=== PATIENT | male | born 1955 | race Caucasian/White ===

== ENCOUNTER → 2016-03-31 | Outpatient (CLI) | payer OTHER ==
[~2016-03-31] MED LIST: ASPI81TA82 PO; ATOR40TA PO; CARV12.52 PO; GLYB1TAB50 PO; LISI-363 PO; NAPR220T95 PO; TAB-TAB PO; TRAM50TA PO
[2016-03-31 09:18] LABS: PLATELET COUNT 241 TH/MM3 (150-450); RED BLOOD COUNT 4.66 MIL/MM3 (4.50-5.90); RED CELL DISTRIBUTION WIDTH 13.8 % (11.6-17.2); REVIEW FLAG FINAL; WHITE BLOOD COUNT 6.4 TH/MM3 (4.0-11.0)
[2016-03-31 09:33] LABS: ALKALINE PHOSPHATASE 128 U/L (45-117); ALT (GPT) 71 U/L (12-78); ANION GAP 11 MEQ/L (5-15); AST (GOT) 48 U/L (15-37); BICARBONATE 23.8 MEQ/L (21.0-32.0); BLOOD UREA NITROGEN 29 MG/DL (7-18); CHLORIDE 102 MEQ/L (98-107); GLOMERULAR FILTRATION RATE 48 ML/MIN (>89); GLUCOSE,FASTING 244 MG/DL (74-99); HDL CHOLESTEROL 37.3 MG/DL (40.0-60.0); LDL CHOLESTEROL 37 MG/DL (0-99); POTASSIUM 4.1 MEQ/L (3.5-5.1); SODIUM (NA) 137 MEQ/L (136-145); TOTAL BILIRUBIN ADULT 0.4 MG/DL (0.2-1.0)
[2016-03-31 17:33] LABS: HEMOGLOBIN A1b 1.2 %; HEMOGLOBIN F 1.6 %
== END ==
LOC: PLAB 06:51
PROVIDERS: ATTEND Family Medicine
DX: E78.5 Hyperlipidemia, unspecified (principal); E11.65 Type 2 diabetes mellitus with hyperglycemia; I10 Essential (primary) hypertension; C65.1 Malignant neoplasm of right renal pelvis
CPT/HCPCS: 80053; 80061; 83036; 84153; 85027

== ENCOUNTER → 2016-08-10 | Outpatient (CLI) | payer OTHER ==
[~2016-08-10] MED LIST changes: +ASPI81TA11 PO; +CARV25TA PO; +CLAR10CA3 PO; +GLYB2.5T3 PO; +HYDR25TA5 PO; +LIPI40TA PO; +LISI-515 PO; +MULT1CHW33 PO
[2016-08-10 09:02] LABS: HEMATOCRIT 38.7 % (39.0-51.0); MEAN CELL VOLUME 87.6 FL (80.0-100.0); MEAN CORPUSCULAR HEMOGLOBIN 30.4 PG (27.0-34.0); MEAN CORPUSCULAR HGB CONC 34.8 % (32.0-36.0); PLATELET COUNT 229 TH/MM3 (150-450); RED BLOOD COUNT 4.42 MIL/MM3 (4.50-5.90); RED CELL DISTRIBUTION WIDTH 13.3 % (11.6-17.2); REVIEW FLAG FINAL; WHITE BLOOD COUNT 6.1 TH/MM3 (4.0-11.0)
[2016-08-10 09:25] LABS: ANION GAP 9 MEQ/L (5-15); BICARBONATE 23.2 MEQ/L (21.0-32.0); BLOOD UREA NITROGEN 18 MG/DL (7-18); CHLORIDE 107 MEQ/L (98-107); GLUCOSE,FASTING 228 MG/DL (74-99); POTASSIUM 4.1 MEQ/L (3.5-5.1); SODIUM (NA) 139 MEQ/L (136-145)
[2016-08-10 09:26] LABS: AST (GOT) 54 U/L (15-37); GLOMERULAR FILTRATION RATE 61 ML/MIN (>89)
[2016-08-10 09:38] LABS: ALKALINE PHOSPHATASE 104 U/L (45-117); ALT (GPT) 71 U/L (12-78); HDL CHOLESTEROL 43.3 MG/DL (40.0-60.0); LDL CHOLESTEROL 60 MG/DL (0-99); TOTAL BILIRUBIN ADULT 0.3 MG/DL (0.2-1.0)
[2016-08-10 11:42] LABS: HEMOGLOBIN A1a 0.9 %; HEMOGLOBIN A1b 2.6 %; HEMOGLOBIN Ao 77.5 %; HEMOGLOBIN LA1C 2.9 %; HEMOGLOBIN P3 5.1 %
== END ==
LOC: PLAB 06:44
PROVIDERS: ATTEND Urology
DX: E11.65 Type 2 diabetes mellitus with hyperglycemia (principal); I10 Essential (primary) hypertension; C65.1 Malignant neoplasm of right renal pelvis; E78.5 Hyperlipidemia, unspecified; R60.0 Localized edema; R94.31 Abnormal electrocardiogram [ECG] [EKG]; I11.9 Hypertensive heart disease without heart failure
CPT/HCPCS: 80053; 80061; 83036; 84153; 84443; 85027

== ENCOUNTER → 2016-12-17 | Outpatient (CLI) | payer OTHER ==
[~2016-12-17] MED LIST changes: -ASPI81TA82 PO; -ATOR40TA PO; -CARV12.52 PO; -GLYB1TAB50 PO; -LISI-363 PO; -NAPR220T95 PO; -TAB-TAB PO
[2016-12-17 09:59] LABS: HEMATOCRIT 40.4 % (39.0-51.0); MEAN CELL VOLUME 89.7 FL (80.0-100.0); MEAN CORPUSCULAR HEMOGLOBIN 29.9 PG (27.0-34.0); MEAN CORPUSCULAR HGB CONC 33.4 % (32.0-36.0); PLATELET COUNT 242 TH/MM3 (150-450); RED BLOOD COUNT 4.51 MIL/MM3 (4.50-5.90); RED CELL DISTRIBUTION WIDTH 13.6 % (11.6-17.2); REVIEW FLAG FINAL; WHITE BLOOD COUNT 6.7 TH/MM3 (4.0-11.0)
[2016-12-17 10:25] LABS: ANION GAP 9 MEQ/L (5-15); AST (GOT) 39 U/L (15-37); BICARBONATE 22.9 MEQ/L (21.0-32.0); BLOOD UREA NITROGEN 27 MG/DL (7-18); CHLORIDE 102 MEQ/L (98-107); GLOMERULAR FILTRATION RATE 52 ML/MIN (>89); GLUCOSE,FASTING 271 MG/DL (74-99); POTASSIUM 4.6 MEQ/L (3.5-5.1); SODIUM (NA) 134 MEQ/L (136-145)
[2016-12-17 10:39] LABS: ALKALINE PHOSPHATASE 104 U/L (45-117); ALT (GPT) 60 U/L (12-78); HDL CHOLESTEROL 40.1 MG/DL (40.0-60.0); LDL CHOLESTEROL 47 MG/DL (0-99); TOTAL BILIRUBIN ADULT 0.6 MG/DL (0.2-1.0)
== END ==
LOC: PLAB 07:20
PROVIDERS: ATTEND Family Medicine
DX: C65.1 Malignant neoplasm of right renal pelvis (principal); E78.5 Hyperlipidemia, unspecified; I12.9 Hypertensive chronic kidney disease with stage 1 through stage 4 chronic kidney disease, or unspecified chronic kidney disease; N18.3 Chronic kidney disease, stage 3 (moderate); E11.22 Type 2 diabetes mellitus with diabetic chronic kidney disease; E11.65 Type 2 diabetes mellitus with hyperglycemia; Z68.42 Body mass index [BMI] 45.0-49.9, adult
CPT/HCPCS: 80053; 80061; 82652; 84443; 85027

== ENCOUNTER → 2017-04-22 | Outpatient (CLI) | payer OTHER ==
[~2017-04-22] MED LIST changes: -ASPI81TA11 PO; +ASPI81TA23 PO
[2017-04-22 10:14] LABS: HEMATOCRIT 40.3 % (39.0-51.0); HEMOGLOBIN 13.6 GM/DL (13.0-17.0); MEAN CELL VOLUME 88.5 FL (80.0-100.0); MEAN CORPUSCULAR HEMOGLOBIN 29.9 PG (27.0-34.0); MEAN CORPUSCULAR HGB CONC 33.7 % (32.0-36.0); MEAN PLATELET VOLUME 8.6 FL (7.0-11.0); PLATELET COUNT 246 TH/MM3 (150-450); RED BLOOD COUNT 4.56 MIL/MM3 (4.50-5.90); WHITE BLOOD COUNT 6.6 TH/MM3 (4.0-11.0)
[2017-04-22 10:32] LABS: ALBUMIN 3.6 GM/DL (3.4-5.0); AST (GOT) 45 U/L (15-37); BICARBONATE 21.8 MEQ/L (21.0-32.0); BLOOD UREA NITROGEN 44 MG/DL (7-18); CHLORIDE 106 MEQ/L (98-107); CREATININE 1.68 MG/DL (0.60-1.30); GLOMERULAR FILTRATION RATE 41 ML/MIN (>89); GLUCOSE,FASTING 139 MG/DL (74-99); SODIUM (NA) 138 MEQ/L (136-145)
[2017-04-22 10:33] LABS: ALT (GPT) 54 U/L (12-78); CHOLESTEROL 131 MG/DL (120-200); TRIGLYCERIDES 266 MG/DL (42-150)
[2017-04-22 10:47] LABS: ALKALINE PHOSPHATASE 99 U/L (45-117); CHOLESTEROL/ HDL RATIO 3.75 RATIO; HDL CHOLESTEROL 34.9 MG/DL (40.0-60.0); LDL CHOLESTEROL 43 MG/DL (0-99); TOTAL BILIRUBIN ADULT 0.4 MG/DL (0.2-1.0)
[2017-04-22 16:31] LABS: HEMOGLOBIN A1C 9.8 % (4.3-6.0)
== END ==
LOC: PLAB 06:51
PROVIDERS: ATTEND Family Medicine
DX: E11.65 Type 2 diabetes mellitus with hyperglycemia (principal); I10 Essential (primary) hypertension; C65.1 Malignant neoplasm of right renal pelvis; E78.5 Hyperlipidemia, unspecified; N18.3 Chronic kidney disease, stage 3 (moderate)
CPT/HCPCS: 36415; 80053; 80061; 83036; 84443; 85027

== ENCOUNTER 2017-06-27 18:41 | Emergency (ER) | payer OTHER ==
[2017-06-27 18:44] VITALS: BP 190/108; PULSE 90; RESP 20; O2SAT 95
--- NOTE | 2017-06-27 18:57 | PD ---
HPI Chief Complaint: Pain: Acute or Chronic Time Seen by Provider: 18:54 Travel History International Travel<30 days: No Contact w/Intl Traveler<30days: No Traveled to known affect area: No History of Present Illness HPI Patient presents with aggravated right trapezius pain. He has had increased stressors with season and moving about. Denies any specific trauma misstep or fall. Pain initially started about 11 AM this morning. Sharp. Aggravated with movement. Relieved with rest. PFSH Past Medical History Cancer: Yes (recent renal ca) Cardiovascular Problems: Yes (HTN) High Cholesterol: Yes Diabetes: Yes Diminished Hearing: No Endocrine: No Genitourinary: No Hepatitis: No Hiatal Hernia: No Hypertension: Yes Immune Disorder: No Musculoskeletal: Yes (ARTHRITIS, NECK PROBLEMS FROM OLD INJURY) Neurologic: No Psychiatric: No Reproductive: No Respiratory: No Thyroid Disease: No Past Surgical History AICD: No Eye Surgery: Yes Joint Replacement: No Oral Surgery: Yes Pacemaker: No Tonsillectomy: Yes Other Surgery: Yes (EYE SURGERY,KNEES BILAT) Social History Alcohol Use: Yes (SOCIALLY) Tobacco Use: No Substance Use: No Allergies-Medications (Allergen,Severity, Reaction): Coded Allergies: acetaminophen (Verified Allergy, Mild, Itching, 06/27/17) hydrocodone (Verified Allergy, Mild, Itching, 06/27/17) Reported Meds & Prescriptions Reported Meds & Active Scripts Active Reported Hydrochlorothiazide 25 Mg Tab 25 Mg PO DAILY Multi Adult Gummies (Multiple Vitamins W/ Minerals) 1 Chw Chw 2 Gum PO DAILY Tramadol (Tramadol HCl) 50 Mg Tab 50 Mg PO DIRECTED PRN Claritin (Loratadine) 10 Mg Cap 10 Mg PO DAILY Aspirin EC (Aspirin) 81 Mg Tabdr 81 Mg PO DAILY Carvedilol 25 Mg Tab 25 Mg PO BID Lisinopril 20 Mg Tab 20 Mg PO BID Glyburide 2.5 Mg Tab 2.5 Mg PO HS Take with meals at the same time each day Lipitor (Atorvastatin Calcium) 40 Mg Tab 40 Mg PO HS Review of Systems General / Constitutional: No: Fever Eyes: No: Visual changes HENT: No: Headaches Cardiovascular: No: Chest Pain or Discomfort Respiratory: No: Shortness of Breath Gastrointestinal: No: Abdominal Pain Genitourinary: No: Dysuria Musculoskeletal: No: Pain Skin: No Rash Neurologic: No: Weakness Psychiatric: No: Depression Endocrine: No: Polydipsia Hematologic/Lymphatic: No: Easy Bruising Physical Exam Narrative GENERAL: Well-nourished, well-developed patient. SKIN: Focused skin assessment warm/dry. HEAD: Normocephalic. EYES: No scleral icterus. No injection or drainage. NECK: Supple, trachea midline. No JVD or lymphadenopathy. CARDIOVASCULAR: Regular rate and rhythm without murmurs, gallops, or rubs. RESPIRATORY: Breath sounds equal bilaterally. No accessory muscle use. GASTROINTESTINAL: Abdomen soft, non-tender, nondistended. MUSCULOSKELETAL: No cyanosis, or edema. BACK: Nontender without obvious deformity. No CVA tenderness. Examination cervical spine reveals no midline tenderness right-sided paraspinous pain radiating into the trapezius Data Data Last Documented VS Vital Signs Date Time Temp Pulse Resp B/P (MAP) Pulse Ox O2 Delivery O2 Flow Rate FiO2 06/27/17 18:44 90 20 190/108 (135) 95 Orders Orders Ketorolac Inj (Toradol Inj) (06/27/17 19:00) Oxycodone-Acetamin 10-325 Mg (Percocet 1 (06/27/17 19:00) Diphenhydramine (Benadryl) (06/27/17 19:00) MDM Medical Decision Making Medical Screen Exam Complete: Yes Emergency Medical Condition: Yes Differential Diagnosis Cervical degenerative disc disease, trapezius muscular skeletal pain, muscle strain, Narrative Course Assessment plan discussed with patient and son at bedside Diagnosis Primary Impression: Trapezius muscle strain Qualified Codes: S46.811A - Strain of other muscles, fascia and tendons at shoulder and upper arm level, right arm, initial encounter Patient Instructions: Narcotic given in the ED, General Instructions Additional Instructions: Nonsteroidal anti-inflammatories warm heat gentle stretching strengthening and massage Med/Other Pt SpecificInfo: Prescription(s) given Scripts Cyclobenzaprine (Flexeril) 10 Mg Tab 10 MG PO TID for Muscle Spasm, #30 TAB 0 Refills Prov: Bubba Sanabria MD 06/27/17 Oxycodone-Acetaminophen (Percocet) 10-325 mg Tab 1 TAB PO Q4H Y for PAIN, #30 TAB 0 Refills Prov: Bubba Sanabria MD 06/27/17 Disposition: 01 DISCHARGE HOME Condition: Good Bubba Sanabria MD Jun 27, 2017 18:56
[2017-06-27] MEDS ORDERED: oxyCODONE/ACETAMINOPHEN 10 MG/325 MG TAB PO ONE (19:00)
[2017-06-27] MEDS ORDERED: diphenhydrAMINE HCL 25 MG CAP PO ONE (19:00)
[2017-06-27] MEDS ORDERED: KETOROLAC TROMETHAMINE 60 MG/2 ML (IM) VIAL IM ONE (19:00)
[2017-06-27] MEDS ORDERED: PERC10TA27 PO (19:02)
[2017-06-27] MEDS ORDERED: CYCL10TA PO (19:02)
== END 2017-06-27 19:13 | disposition home or self-care (01) ==
LOC: PHED 18:41
DX: S46.811A Strain of other muscles, fascia and tendons at shoulder and upper arm level, right arm, initial encounter (principal); I10 Essential (primary) hypertension; E78.00 Pure hypercholesterolemia, unspecified; E11.9 Type 2 diabetes mellitus without complications; M19.90 Unspecified osteoarthritis, unspecified site; X58.XXXA Exposure to other specified factors, initial encounter; Z79.82 Long term (current) use of aspirin; Z79.899 Other long term (current) drug therapy; Z88.6 Allergy status to analgesic agent
CPT/HCPCS: 96372; 99283; J1885

== ENCOUNTER → 2017-08-19 | Day surgery (SDC) | payer OTHER ==
[~2017-08-19] MED LIST changes: +LIDOCAINE HCL 1% 30 ML VIAL INFIL ONE; +MEPERIDINE HCL 50 MG/ML VIAL IV ONE; +MIDAZOLAM HCL 2 MG/2 ML VIAL IV ONE; +PROPOFOL 200 MG/20 ML AMP IV ONE; +SODIUM CHLORIDE 0.9% 10 ML VIAL ONE; +TRIAMCINOLONE ACETONIDE 40 MG/ML VIAL NERV BLOCK ONE
--- NOTE | 2017-08-19 10:34 | M6 ---
cc: Jean Hu MD DATE: 08/19/2017 PROCEDURE PERFORMED: Fluoroscopically guided T1-T2 interlaminar epidural steroid injection. History and physical was completed and signed. Consent was signed. Procedure site was marked. Medications were listed and reconciled. Pain score was recorded. Allergies were noted. Time out was taken. Fluoroscopy time was recorded where applicable. Sedation was administered or directed by Dr. Hu. The patient was given oxygen. The patient was monitored by a registered nurse. Total procedure time was greater than 15 minutes. IV was started. Blood pressure cuff, pulse oximeter and EKG were applied. The patient was placed in the prone position on a Nelson table, sedated with small amounts of Propofol titrated to effect. Vital signs were monitored and remained stable throughout the procedure. Cervical area was prepped with alcohol and 10% Betadine solution and draped with sterile drapes. Fluoroscopy was used to visualize the T1-T2 interlaminar space. The skin was infiltrated with 1% Xylocaine, using a 27-gauge needle. Then, a 3-1/2 inch, 18-gauge Rosario needle was advanced using fluoroscopic guidance and the loss of resistance technique into the epidural space at T1-T2, slightly to the right of the midline. There was negative aspiration for blood or any other type of fluid and at that location of the patient was given 6 mL of normal saline and 60 mg of Kenalog. Following this, the patient was taken to the recovery room with stable vital signs, neurologically intact. MD VALERIE Kitchen/VICENTE , 10:04 AM , 10:32 AM
== END | disposition home or self-care (01) ==
LOC: PHSDC 08:05
PROVIDERS: ATTEND Pain Medicine Interventional Pain Medicine
DX: M79.621 Pain in right upper arm (principal)
CPT/HCPCS: 62321; 99152; J2175; J2250; J3301

== ENCOUNTER → 2017-08-27 | Outpatient (CLI) | payer OTHER ==
[~2017-08-27] MED LIST changes: -LIDOCAINE HCL 1% 30 ML VIAL INFIL ONE; -MEPERIDINE HCL 50 MG/ML VIAL IV ONE; -MIDAZOLAM HCL 2 MG/2 ML VIAL IV ONE; -PROPOFOL 200 MG/20 ML AMP IV ONE; -SODIUM CHLORIDE 0.9% 10 ML VIAL ONE; -TRIAMCINOLONE ACETONIDE 40 MG/ML VIAL NERV BLOCK ONE
[2017-08-27 10:28] LABS: AUTOMATED NEUTROPHIL # 7.1 TH/MM3 (1.8-7.7); BASOPHIL % 0.4 % (0.0-2.0); EOSINOPHIL # 0.2 TH/MM3 (0-0.4); EOSINOPHIL % 2.4 % (0.0-4.0); HEMATOCRIT 41.3 % (39.0-51.0); HEMOGLOBIN 13.7 GM/DL (13.0-17.0); LYMPH % 19.9 % (9.0-44.0); LYMPHOCYTE # 2.1 TH/MM3 (1.0-4.8); MEAN CELL VOLUME 89.2 FL (80.0-100.0); MEAN CORPUSCULAR HEMOGLOBIN 29.7 PG (27.0-34.0); MEAN CORPUSCULAR HGB CONC 33.3 % (32.0-36.0); MEAN PLATELET VOLUME 9.4 FL (7.0-11.0); MONO % 9.9 % (0.0-8.0); NEUT % 67.4 % (16.0-70.0); PLATELET COUNT 303 TH/MM3 (150-450); RED BLOOD COUNT 4.62 MIL/MM3 (4.50-5.90); RED CELL DISTRIBUTION WIDTH 13.7 % (11.6-17.2); WHITE BLOOD COUNT 10.5 TH/MM3 (4.0-11.0)
[2017-08-27 11:11] LABS: ALBUMIN 3.2 GM/DL (3.4-5.0); AST (GOT) 43 U/L (15-37); BICARBONATE 19.7 MEQ/L (21.0-32.0); BLOOD UREA NITROGEN 41 MG/DL (7-18); CALCIUM 8.9 MG/DL (8.5-10.1); CHLORIDE 103 MEQ/L (98-107); CREATININE 1.71 MG/DL (0.60-1.30); GLOMERULAR FILTRATION RATE 41 ML/MIN (>89); GLUCOSE,FASTING 385 MG/DL (74-99); SODIUM (NA) 133 MEQ/L (136-145)
[2017-08-27 11:12] LABS: CHOLESTEROL 120 MG/DL (120-200)
[2017-08-27 11:24] LABS: ALKALINE PHOSPHATASE 112 U/L (45-117); ALT (GPT) 79 U/L (12-78); CHOLESTEROL/ HDL RATIO 2.58 RATIO; HDL CHOLESTEROL 46.5 MG/DL (40.0-60.0); LDL CHOLESTEROL 42 MG/DL (0-99); TOTAL BILIRUBIN ADULT 0.6 MG/DL (0.2-1.0); TOTAL PROTEIN 6.7 GM/DL (6.4-8.2); TRIGLYCERIDES 160 MG/DL (42-150)
[2017-08-27 22:29] LABS: HEMOGLOBIN A1C 13.4 % (4.3-6.0)
== END ==
LOC: PLAB 07:12
PROVIDERS: ATTEND Family Medicine
DX: E78.2 Mixed hyperlipidemia (principal); E11.9 Type 2 diabetes mellitus without complications; I10 Essential (primary) hypertension
CPT/HCPCS: 36415; 80053; 80061; 83036; 84443; 85025